=== PATIENT | female | born 1975 | race Caucasian/White ===

== ENCOUNTER 2021-08-05 11:22 | Emergency (ER) | payer OTHER ==
[~2021-08-05] VITALS: Ht 170.2 cm; Wt 102.1 kg
[2021-08-05 14:39] VITALS: BP 130/71
--- NOTE | 2021-08-06 07:30 | EKG ---
[address] [address] ELECTROCARDIOGRAM REPORT Name: RICHIE MONACO Room #: [facility] Elva#: [id number] Admission: 08/05/21 Attend Phys: Discharge: 08/05/21 Date of : 73 Report #: [id number] 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
== END 2021-08-05 15:09 | disposition home or self-care (01) ==
LOC: ER 11:22
DX: T42.6X1A Poisoning by other antiepileptic and sedative-hypnotic drugs, accidental (unintentional), initial encounter (principal); T45.0X1A Poisoning by antiallergic and antiemetic drugs, accidental (unintentional), initial encounter; R42 Dizziness and giddiness; Z87.442 Personal history of urinary calculi; Z90.710 Acquired absence of both cervix and uterus; Z98.890 Other specified postprocedural states; Y92.89 Other specified places as the place of occurrence of the external cause